=== PATIENT | female | born 1970 | race Caucasian/White ===

== ENCOUNTER 2021-07-27 15:02 | Emergency (ER) | payer BC ==
[~2021-07-27] VITALS: Ht 175.3 cm; Wt 76.7 kg
[2021-07-27 15:02] VITALS: BP_SYST 144
--- NOTE | 2021-07-27 15:02 | NUR ---
Patient to ER bed 6 to gown for evaluation. Side rails up.
[2021-07-27] MEDS ORDERED: MECLIZINE HCL 25 MG TABLET (ANITVERT) PO ONE (15:30)
--- NOTE | 2021-07-27 16:20 | NUR ---
ER at bedside examining patient.
--- NOTE | 2021-07-27 16:24 | NUR ---
50YO FEM C/O OF SUDDEN DIZZINESS DURING WORK AT 1430. NO LOSS OF CONCIOUSNESS NO INJURY OCCURRED. PT SKIN INTACT ALERT ORIENTED X4. PT STATES FEELING "WEAK, HEAVY AND HAZY" AT THIS TIME. PT NOTED THIS IS THE FIRST TIME THIS EVENT HAS OCCURRED
--- NOTE | 2021-07-27 16:35 | NUR ---
PT BLOOD DRAWN BY LAB
[2021-07-27 16:55] LABS: BASOPHILS % (AUTO) 0.5 % (0.0-2.0); EOSINOPHILS # (AUTO) 0.1 K/uL (0.0-0.4); EOSINOPHILS % (AUTO) 0.7 % (0.0-4.0); HEMATOCRIT 38.3 % (36-48); LYMPHOCYTES # (AUTO) 0.8 K/uL (1.0-5.5); LYMPHOCYTES % (AUTO) 8.7 % (20.5-51.5); MEAN CORPUSCULAR HEMOGLOBIN 31 pg (27-31); MEAN CORPUSCULAR HGB CONC 34 % (32-36); MEAN CORPUSCULAR VOLUME 92 fL (79.0-98.0); MONOCYTES # (AUTO) 0.4 K/uL (0.0-1.0); MONOCYTES % (AUTO) 3.9 % (1.7-9.3); NEUTROPHILS # (AUTO) 7.7 K/uL (1.8-7.7); NEUTROPHILS % (AUTO) 86.2 % (40.0-70.0); PLATELET COUNT (AUTO) 257 K/uL (130-430); RED BLOOD CELL COUNT(AUTO) 4.18 MIL/uL (4.2-6.2); RED CELL DISTRIBUTION WIDTH 13.1 % (9.0-15.0)
[2021-07-27 17:17] LABS: ANION GAP 7 (5-15); CALCIUM 9.2 mg/dL (8.4-11.0); CHLORIDE 106 mmol/L (98-107); CREATININE 0.65 mg/dL (0.55-1.30); GLUCOSE 138 mg/dL (70-99); POTASSIUM 3.3 mmol/L (3.5-5.1); SODIUM SERUM 140 mmol/L (136-145); UREA NITROGEN, BLOOD 12 mg/dL (8-21)
[2021-07-27 17:34] LABS: GFR AFRICAN AMERICAN 124 mL/min (>90)
[2021-07-27 17:35] LABS: ALANINE AMINOTRANSFERASE 22 U/L (12-78); ALBUMIN 3.5 g/dL (3.4-4.8); ASPARTATE AMINOTRANSFERASE 16 U/L (10-37); HCG,QUANTITATIVE 0 mIU/ML (0-6)
[2021-07-27 17:37] LABS: BILIRUBIN,URINE NEGATIVE (NEGATIVE); BLOOD, URINE NEGATIVE (NEGATIVE); CLARITY/URINE CLEAR (CLEAR); COLOR,URINE YELLOW (YELLOW); GLUCOSE,URINE NEGATIVE (NEGATIVE); KETONES,URINE NEGATIVE (NEGATIVE); LEUKOCYTE ESTERASE ,URINE NEGATIVE (NEGATIVE); NITRITE, URINE NEGATIVE (NEGATIVE); PROTEIN URINE NEGATIVE (NEGATIVE); UROBILINOGEN,URINE 0.2 (0.2-1.0)
[2021-07-27 17:50] LABS: TOTAL BILIRUBIN 0.4 mg/dL (0.0-1.0)
[2021-07-27 17:59] LABS: ALCOHOL, BLOOD < 3 mg/dL (<10)
[2021-07-27] MEDS ORDERED: MECL-160 PO (18:18)
[2021-07-27 18:33] LABS: BARBITURATE, URINE NEGATIVE (NEG <=200); BENZODIAZEPINE, URINE NEGATIVE (NEG <=150); CANNABINOID, URINE NEGATIVE (NEG <=50); COCAINE, URINE NEGATIVE (NEG <=150); METHAMPHETAMINES SCREEN,URINE NEGATIVE (NEG <=500); OPIATE, URINE NEGATIVE (NEG <=100); PHENCYCLIDINE SCREEN,URINE NEGATIVE (NEG <=25); UR TRICYCLIC ANTIDEPRESSANTS NEGATIVE (NEG <=300); URINE AMPHETAMINE NEGATIVE (NEG <=500); URINE METHADONE NEGATIVE (NEG <=200); URINE OXYCODONE SCREEN NEGATIVE (NEG <=100); URINE PROPOXYPHENE SCREEN NEGATIVE (NEG <=300)
[2021-07-27 18:39] VITALS: BP_SYST 126
--- NOTE | 2021-07-27 18:41 | NUR ---
Patient given written and verbal discharge instructions and verbalizes understanding. ER MD ABBOTT discussed with patient the results and treatment provided. Patient in stable condition. ID arm band removed. Rx of MECLIZINE given. Patient educated on pain management and to follow up with PMD. Opportunity for questions provided and answered. Medication side effect fact sheet provided.
== END 2021-07-27 18:41 | disposition home or self-care (01) ==
LOC: SED 15:02
DX: R55 Syncope and collapse (principal); R42 Dizziness and giddiness
CPT/HCPCS: 36415; 70450; 76376; 80053; 80307; 81003; 82962; 84484; 84702; 85025; 99284; G0482; J8597

== ENCOUNTER 2021-08-17 05:50 | Day surgery (SDC) | payer BC ==
[~2021-08-17] VITALS: Ht 175.3 cm; Wt 78.5 kg
[~2021-08-17 05:50] MED LIST: MECL-160 PO
[2021-08-17 06:23] LABS: HCG,QUAL RESULT NEGATIVE (NEGATIVE)
[2021-08-17] MEDS ORDERED: MIDAZOLAM HCL 5 MG/ML VIAL (VERSED) IV ONE (08:13)
[2021-08-17] MEDS ORDERED: PROPOFOL 200MG/ 20ML VIAL (DIPRIVAN) IV ONE (08:13)
[2021-08-17] MEDS ORDERED: LR 1,000 ML IV.SOLN IV ONE (08:13)
[2021-08-17] MEDS ORDERED: fentaNYL CITRATE/PF 100 MCG/2 ML AMP ONE (08:13)
[2021-08-17] MEDS ORDERED: CEFAZOLIN 1 GM IVPB PREMIX 50 ML IV ONE (08:13)
[2021-08-17] MEDS ORDERED: SEVOFLURANE 15 MIN GAS INH ONE (08:13)
[2021-08-17] MEDS ORDERED: ePHEDrine sulfate 50 MG/ML VIAL ONE (08:13)
[2021-08-17] MEDS ORDERED: DEXAMETHASONE SOD PHOSPHATE 4 MG/ML VIAL ONE (08:13)
[2021-08-17] MEDS ORDERED: NS 1000 ML IV.SOLN IV ONE (08:13)
[2021-08-17] MEDS ORDERED: NS IRRIG SOLN 1000 ML IR ONE (08:13)
[2021-08-17] MEDS ORDERED: ONDANSETRON HCL 4 MG/2 ML VIAL ONE (08:13)
[2021-08-17] MEDS ORDERED: MORPHINE 4 MG INJ. 4 MG/ML VIAL IVP PRN ×3 (08:15)
[2021-08-17] MEDS ORDERED: OXYCODONE/ACETAMINOPHEN 5-325 TABLET PO PRN ×2 (08:15)
[2021-08-17] MEDS ORDERED: METOCLOPRAMIDE HCL 10 MG/2 ML VIAL IVP PRN (08:15)
[2021-08-17] MEDS ORDERED: MEPERIDINE HCL/PF 25 MG/ML DISP.SYRIN IVP PRN (08:15)
[2021-08-17] MEDS ORDERED: HYDROcodone/ACETAMIN 5-325 MG TAB (NORCO/ VICODIN) PO PRN (08:15)
[2021-08-17] MEDS ORDERED: ONDANSETRON HCL 4 MG/2 ML VIAL IVP PRN ×2 (08:15)
[2021-08-17 10:37] VITALS: BP_SYST 112
== END 2021-08-17 10:00 | disposition home or self-care (01) ==
LOC: SMU 05:50 → SDS 05:50
PROVIDERS: ATTEND Specialist
DX: N92.1 Excessive and frequent menstruation with irregular cycle (principal); N84.0 Polyp of corpus uteri; D25.9 Leiomyoma of uterus, unspecified; N93.8 Other specified abnormal uterine and vaginal bleeding; Z79.899 Other long term (current) drug therapy; Z20.822 Contact with and (suspected) exposure to COVID-19
CPT/HCPCS: 36415 ×2; 58561; 84703; 87426; 87635; 88305; J0690; J1100; J2250; J2405; J2704; J3010; J7030; J7120; U0003